=== PATIENT | female | born 1935 | race Caucasian/White ===

== ENCOUNTER 2018-04-21 09:43 | Outpatient (RCR) | payer MEDICARE ==
[~2018-04-21 09:43] MED LIST: ACTOS45 MG PO; ATORVASTATIN CA20 MG; BIOTIN10 MG PO; DAILY MULTIPLE1 EACH PO; DIPHENHYDRAMINE; ERGOCALCIFEROL; FERROUS GLUCONATE; GLIPIZIDE10 MG; HCTZ; HYDROCHLOROTHIA50 MG PO; KLOR-CON M2020 MEQ PO; LANTUS100 UNITS/ INJ; LIPITOR20 MG PO; LOVENOX40 MG/0.4 SC; METFORMIN HCL1000 MG PO; NATEGLINIDE120 MG PO; PIOGLITAZONE HC45 MG; POTASSIUM CHLO20 ME1; VICODIN 5-5001 EACH; VITAMIN D350000 UNIT PO; [UNRECOGNIZED DRUG - OTHER] PO
== END 2018-04-24 ==
LOC: PT 09:43
PROVIDERS: ATTEND Specialist
DX: M47.816 Spondylosis without myelopathy or radiculopathy, lumbar region (principal); M62.81 Muscle weakness (generalized)
CPT/HCPCS: 97110 ×9; 97162; G8981; G8982

== ENCOUNTER 2018-05-20 09:51 | Outpatient (RCR) | payer MEDICARE | END 2018-05-24 | LOC: PT 09:51 | PROVIDERS: ATTEND Specialist | DX: M47.816 Spondylosis without myelopathy or radiculopathy, lumbar region (principal) | CPT/HCPCS: 97110 ×6; G8981; G8982 ==